=== PATIENT | female | born 1985 | race Caucasian/White ===

== ENCOUNTER 2016-08-15 13:44 | Emergency (ER) | payer BC ==
[2016-08-15 13:52] VITALS: BP 149/86
== END 2016-08-15 14:10 | disposition left against medical advice (07) ==
LOC: ED 13:44
DX: O46.91 Antepartum hemorrhage, unspecified, first trimester (principal); Z3A.01 Less than 8 weeks gestation of pregnancy; Z53.21 Procedure and treatment not carried out due to patient leaving prior to being seen by health care provider

== ENCOUNTER 2016-09-03 18:34 | Emergency (ER) | payer BC, OTHER ==
[2016-09-03 18:45] VITALS: BP 149/84
--- NOTE | 2016-09-03 19:46 | ED ---
- HPI Summary HPI Summary: 30 F presents with vaginal bleeding for a month. Passed a clot two days ago. Has not follow up with obgyn for this issue yet. LMP was 07/09. She admits to cramp like abdominal pain and nausea. She denies any dysuria. She says the bleeding has been mild. She says she felt her cervix and that it felt closed and high. She says she has noticed red blood and dark blood. She says she could have an STD. She denies any fever. She denies any lightheadedness or palpitations. - History of Current Complaint Pain Intensity: 9 - Additional Pertinent History Primary Care Physician: [id number] <Jocelyn Box - Last Filed: 09/03/16 22:56> <David Villareal - Last Filed: 09/17/16 22:18> - History of Current Complaint Chief Complaint: EDVaginalBleeding Stated Complaint: POSS MISCARRIAGE Time Seen by Provider: 09/03/16 19:27 - Allergies/Home Medications Allergies/Adverse Reactions: Allergies Allergy/AdvReac Type Severity Reaction Status Date / Time No Known Allergies Allergy Verified 12/20/15 14:57 PMH/Surg Hx/FS Hx/Imm Hx Endocrine/Hematology History: Reports: Hx Anemia - current Sensory History: Reports: Hx Contacts or Glasses - glasses for distance Denies: Hx Hearing Problem Opthamlomology History: Reports: Hx Contacts or Glasses - glasses for distance Psychiatric History: Reports: Hx Anxiety, Hx Depression, Hx Panic Disorder, Hx Community Mental Health Tx, Hx Substance Abuse Denies: Hx Eating Disorder, Hx of Violent Episodes Against Others Infectious Disease History: No Infectious Disease History: Denies: Traveled Outside the [place] in Last 30 Days - Family History Known Family History: Negative: Cardiac Disease - Social History Alcohol Use: Occasionally Substance Use Type: Reports: Cocaine, Prescribed Smoking Status (MU): Current Every Day Smoker Type: Cigarettes Amount Used/How Often: half pack per day Length of Time of Smoking/Using Tobacco: has smoked on and off for years Have You Smoked in the Last Year: Yes <Jocelyn Box - Last Filed: 09/03/16 22:56> Review of Systems Negative: Fever Negative: Chest Pain Negative: Shortness Of Breath Positive: Abdominal Pain - pelvic pain, Nausea, Other - vaginal bleeding. Negative: Vomiting, Diarrhea Negative: dysuria All Other Systems Reviewed And Are Negative: Yes <Janet Boxbeth - Last Filed: 09/03/16 22:56> Physical Exam - Physical Exam Triage Information Reviewed: Yes Vital Signs Reviewed: Yes Appearance: Positive: Well-Appearing Skin: Positive: Warm, Dry Head/Face: Positive: Normal Head/Face Inspection Eyes: Positive: Normal, Conjunctiva Clear ENT: Positive: Normal ENT inspection, Pharynx normal, TMs normal Respiratory/Lung Sounds: Positive: Clear to Auscultation, Breath Sounds Present Cardiovascular: Positive: Normal, RRR Abdomen Description: Positive: Soft, Other: - tenderness to suprapubic region, no rebound tenderness Bowel Sounds: Positive: Present <Janet Boxbeth - Last Filed: 09/03/16 22:56> Diagnostics - Vital Signs Vital Signs Temp Pulse Resp BP Pulse Ox 09/03/16 18:40 98.7 F 92 16 149/84 100 - Laboratory Result Diagrams: 09/03/16 19:59 09/03/16 19:59 Lab Statement: Any lab studies that have been ordered have been reviewed, and results considered in the medical decision making process. - Ultrasound No standard instances Ultrasound Interpretation: Positive (See Comments) - IMPRESSION: 1. Single live intrauterine gestation with a crown-rump length yielding a gestational age of 9 weeks and 2 days. 2. Small subchorionic hemorrhage is noted with a maximum thickness is 7 mm measuring up to 3.2 cm in length. 3. The right ovary is not discretely visualized. Ultrasound Interpretation Completed By: Radiologist <Jocelyn Box - Last Filed: 09/03/16 22:56> - Vital Signs Vital Signs Temp Pulse Resp BP Pulse Ox 09/03/16 18:40 98.7 F 92 16 149/84 100 - Laboratory Lab Results: Lab Results 09/03/16 09/03/16 09/03/16 Range/Units 19:59 19:59 19:59 WBC 10.7 (3.5-10.8) 10^3/ul RBC 4.80 (4.0-5.4) 10^6/ul Hgb 8.9 L (12.0-16.0) g/dl Hct 29 L (35-47) % MCV 60 L (80-97) fL MCH 19 L (27-31) pg MCHC 31 (31-36) g/dl RDW 18 H (10.5-15) % Plt Count 279 (150-450) 10^3/ul MPV 9 (7.4-10.4) um3 Neut % (Auto) 70.9 (38-83) % Lymph % (Auto) 20.3 L (25-47) % [place] % (Auto) 5.6 (1-9) % Eos % (Auto) 2.0 (0-6) % Baso % (Auto) 1.2 (0-2) % Absolute Neuts (auto) 7.6 (1.5-7.7) 10^3/ul Absolute Lymphs (auto) 2.2 (1.0-4.8) 10^3/ul Absolute Monos (auto) 0.6 (0-0.8) 10^3/ul Absolute Eos (auto) 0.2 (0-0.6) 10^3/ul Absolute Basos (auto) 0.1 (0-0.2) 10^3/ul Absolute Nucleated RBC 0 10^3/ul Nucleated RBC % 0 Sodium 132 L (133-145) mmol/L Potassium 3.7 (3.5-5.0) mmol/L Chloride 105 (101-111) mmol/L Carbon Dioxide 23 (22-32) mmol/L Anion Gap 4 (2-11) mmol/L BUN 10 (6-24) mg/dL Creatinine 0.48 L (0.51-0.95) mg/dL Est GFR ( Amer) 195.3 (>60) Est GFR (Non-Af Amer) 151.9 (>60) BUN/Creatinine Ratio 20.8 H (8-20) Glucose 86 (70-100) mg/dL Calcium 8.3 L (8.6-10.3) mg/dL Total Bilirubin 0.30 (0.2-1.0) mg/dL AST 10 L (13-39) U/L ALT 6 L (7-52) U/L Alkaline Phosphatase 29 L (34-104) U/L Total Protein 6.0 L (6.4-8.9) g/dL Albumin 3.3 (3.2-5.2) g/dL Globulin 2.7 (2-4) g/dL Albumin/Globulin Ratio 1.2 (1-3) Beta HCG, Quant 400504.00 mIU/mL Urine Color Urine Appearance Urine pH (5-9) Ur Specific [place] (1.010-1.030) Urine Protein (Negative) Urine Ketones (Negative) Urine Blood (Negative) Urine Nitrate (Negative) Urine Bilirubin (Negative) Urine Urobilinogen (Negative) Ur Leukocyte Esterase (Negative) Urine WBC (Auto) (Absent) Urine RBC (Auto) (Absent) Ur Squamous Epith Cells (Absent) Amorphous Crystals (Absent) Urine Bacteria (Absent) Urine Glucose (Negative) Blood Type A Positive 09/03/16 Range/Units 20:15 WBC (3.5-10.8) 10^3/ul RBC (4.0-5.4) 10^6/ul Hgb (12.0-16.0) g/dl Hct (35-47) % MCV (80-97) fL MCH (27-31) pg MCHC (31-36) g/dl RDW (10.5-15) % Plt Count (150-450) 10^3/ul MPV (7.4-10.4) um3 Neut % (Auto) (38-83) % Lymph % (Auto) (25-47) % [place] % (Auto) (1-9) % Eos % (Auto) (0-6) % Baso % (Auto) (0-2) % Absolute Neuts (auto) (1.5-7.7) 10^3/ul Absolute Lymphs (auto) (1.0-4.8) 10^3/ul Absolute Monos (auto) (0-0.8) 10^3/ul Absolute Eos (auto) (0-0.6) 10^3/ul Absolute Basos (auto) (0-0.2) 10^3/ul Absolute Nucleated RBC 10^3/ul Nucleated RBC % Sodium (133-145) mmol/L Potassium (3.5-5.0) mmol/L Chloride (101-111) mmol/L Carbon Dioxide (22-32) mmol/L Anion Gap (2-11) mmol/L BUN (6-24) mg/dL Creatinine (0.51-0.95) mg/dL Est GFR ( Amer) (>60) Est GFR (Non-Af Amer) (>60) BUN/Creatinine Ratio (8-20) Glucose (70-100) mg/dL Calcium (8.6-10.3) mg/dL Total Bilirubin (0.2-1.0) mg/dL AST (13-39) U/L ALT (7-52) U/L Alkaline Phosphatase (34-104) U/L Total Protein (6.4-8.9) g/dL Albumin (3.2-5.2) g/dL Globulin (2-4) g/dL Albumin/Globulin Ratio (1-3) Beta HCG, Quant mIU/mL Urine Color Yellow Urine Appearance Cloudy Urine pH 7.0 (5-9) Ur Specific [place] 1.021 (1.010-1.030) Urine Protein Negative (Negative) Urine Ketones Negative (Negative) Urine Blood Negative (Negative) Urine Nitrate Negative (Negative) Urine Bilirubin Negative (Negative) Urine Urobilinogen Negative (Negative) Ur Leukocyte Esterase Trace H (Negative) Urine WBC (Auto) Absent (Absent) Urine RBC (Auto) Absent (Absent) Ur Squamous Epith Cells Present H (Absent) Amorphous Crystals Present H (Absent) Urine Bacteria Absent (Absent) Urine Glucose Negative (Negative) Blood Type Result Diagrams: 09/03/16 19:59 09/03/16 19:59 Lab Statement: Any lab studies that have been ordered have been reviewed, and results considered in the medical decision making process. <David Villareal - Last Filed: 09/17/16 22:18> Course/Dx - Course Course Of Treatment: 30 F presents with vaginal bleeding for a month intermittent. passed a clot two days ago. admits to nausea and cramp like pelvic pain but denies any vomiting. on exam tenderness to suprapelvic region. labs normal WBC. no need rho gram. HCG not in indeterminate range. H/H shows anemic but pateint denies any symptoms of anemia instructed to add iron supplement. u/s shows viable interuterine with subchoronic hemorrhage. She refused a pelvic exam. She states she felt her cervix and it felt closed and high. Told her in order to do STD testing need to do pelvic. Told her about the risks of STDs to the baby and herself and she states she will follow up with the obgyn for STD testing and pelvic exam she is in a hurry to leave the ER currently. Instructed to return if develops fever, vomiting, or severe pain or any new vaginal discharge. patient will follow up with obgyn and understands and agrees with plan. - Differential Diagnosis/HQI/PQRI: Incomplete , Spontaneous , Threatened , Intrauterine , STI/STD, Vaginal Bleeding <Jocelyn Box - Last Filed: 09/03/16 22:56> - Course Assessment/Plan: Patient not presented, seen or examen by in WR <David Villareal - Last Filed: 09/17/16 22:18> - Diagnoses Provider Diagnoses: Intrauterine , Subchorionic bleed Discharge <Jocelyn Box - Last Filed: 09/03/16 22:56> <David Villareal - Last Filed: 09/17/16 22:18> - Discharge Plan Condition: Stable Disposition: HOME Patient Education Materials: Threatened Miscarriage (ED) Referrals: Geena Dent MD [Medical Doctor] - No Primary Care Phys,NOPCP [Primary Care Provider] - Additional Instructions: Follow up with obgyn as soon as possible Return to ED if develop fever, vomiting, severe abdominal pain or any new or worsening symptoms
[2016-09-03 20:07] LABS: Hematocrit 29 % (35-47); Hemoglobin 8.9 g/dl (12.0-16.0); Mean Corpuscular HGB Conc 31 g/dl (31-36); Mean Corpuscular Hemoglobin 19 pg (27-31); Mean Platelet Volume 9 um3 (7.4-10.4); Red Cell Distribution Width 18 % (10.5-15); White Blood Count 10.7 10^3/ul (3.5-10.8)
[2016-09-03 20:10] LABS: Comments Flag Yes
[2016-09-03 20:11] LABS: Mean Corpuscular Volume 60 fL (80-97)
[2016-09-03 20:26] LABS: Albumin 3.3 g/dL (3.2-5.2); BUN/Creatinine Ratio 20.8 (8-20); Calcium 8.3 mg/dL (8.6-10.3); EGFR African American 195.3 (>60); EGFR Non-African American 151.9 (>60); Globulin 2.7 g/dL (2-4); Potassium 3.7 mmol/L (3.5-5.0); Total Bilirubin 0.3 mg/dL (0.2-1.0)
[2016-09-03 20:27] LABS: Urine Bacteria Absent (Absent); Urine Bilirubin Negative (Negative); Urine Glucose Negative (Negative); Urine Nitrite Negative (Negative)
--- NOTE | 2016-09-03 21:36 | RAD ---
HISTORY: Vaginal bleeding. Last menstrual period reported to be July 07, 2017 corresponding to a gestational age of 8 weeks and 2 days. COMPARISONS: None TECHNIQUE: Multiple transverse and longitudinal ultrasound images were obtained of the pelvis using grayscale, color flow, spectral and M-mode sonographic imaging. FINDINGS: UTERUS: The uterus is normal in shape, size, contour, and echotexture. GESTATION: There is a single live intrauterine gestation. The crown-rump length measures 2.5 cm yielding a gestational age of 9 weeks and 2 days. The mean gestational sac diameter measures 4.9 centimeters yielding a gestational age of 10 weeks and 6 days. The 6 mm yolk sac is present. cardiac motion is detected at a rate of 181 beats per minute. There is subchorionic fluid measuring 7 mm in greatest thickness and up to 3.2 cm in length. CUL-DE-SAC: There is no free fluid within the cul-de-sac. RIGHT OVARY: The right ovary is not discretely visualized. LEFT OVARY: The left ovary measures 3 x 1.5 x 4.7 cm. IMPRESSION: 1. Single live intrauterine gestation with a crown-rump length yielding a gestational age of 9 weeks and 2 days. 2. Small subchorionic hemorrhage is noted with a maximum thickness is 7 mm measuring up to 3.2 cm in length. 3. The right ovary is not discretely visualized.
== END 2016-09-03 21:47 | disposition home or self-care (01) ==
LOC: ED 18:34
DX: O20.8 Other hemorrhage in early pregnancy (principal); Z34.90 Encounter for supervision of normal pregnancy, unspecified, unspecified trimester; R10.2 Pelvic and perineal pain; R10.9 Unspecified abdominal pain; R11.0 Nausea
CPT/HCPCS: 36415; 76801; 80053; 81003; 81015; 84702; 85025; 86900; 86901; 87086; 99282

== ENCOUNTER 2017-05-02 18:51 | Emergency (ER) | payer OTHER ==
[2017-05-02 23:44] LABS: Hematocrit 27 % (35-47); Hemoglobin 8.1 g/dl (12.0-16.0); Mean Corpuscular HGB Conc 30 g/dl (31-36); Mean Corpuscular Hemoglobin 17 pg (27-31); Mean Platelet Volume 9 um3 (7.4-10.4); Red Blood Count 4.88 10^6/ul (4.0-5.4); Red Cell Distribution Width 21 % (10.5-15); White Blood Count 6.3 10^3/ul (3.5-10.8)
[2017-05-02 23:46] LABS: Comments Flag Yes
[2017-05-02 23:48] LABS: Mean Corpuscular Volume 55 fL (80-97)
[2017-05-03 00:02] LABS: ALT 9 U/L (7-52); AST 11 U/L (13-39); Alkaline Phosphatase 31 U/L (34-104); Anion Gap 4 mmol/L (2-11); BUN/Creatinine Ratio 16.4 (8-20); Blood Urea Nitrogen 10 mg/dL (6-24); CO2 Carbon Dioxide 26 mmol/L (22-32); Calcium 8.8 mg/dL (8.6-10.3); Chloride 106 mmol/L (101-111); EGFR African American 147.1 (>60); EGFR Non-African American 114.4 (>60); Globulin 2.6 g/dL (2-4); Glucose 91 mg/dL (70-100); Potassium 3.6 mmol/L (3.5-5.0); Sodium 136 mmol/L (133-145); Total Protein 6.6 g/dL (6.4-8.9)
[2017-05-03] MEDS ORDERED: Ferrous Sulfate TAB* 325 MG PO ONE (00:36)
[2017-05-03] MEDS ORDERED: Acetaminophen TAB* 325 MG PO ONE (00:38)
[2017-05-03 01:22] LABS: Urine Bacteria Absent (Absent); Urine Bilirubin Negative (Negative); Urine Glucose Negative (Negative); Urine Nitrite Negative (Negative)
--- NOTE | 2017-05-03 01:47 | ED ---
GI/ HPI - HPI Summary HPI Summary: Patient presents to the ED with CC of vaginal bleeding x 7 days. She states she had a still 5 months ago and this is her 3rd cycle, all which were abnormal and longer than usual. She normally has regular cycles without cramping. 7 days ago she began with moderate bleeding which has become worse over the last few days and worse today. She is soaking through 3 super tampons per day and 1 pad. She notes to some PICA and chewing on ice, restless leg and LIAO. She has had anemia before and this feels similar. She denies any other significant OB history. Denies other pain. She is otherwise healthy and takes no medications. She was seen at [facility] and test negative. Denies history of ovarian cysts or endometriosis. She is not on control and denies history or concern for STI's. - History of Current Complaint Chief Complaint: EDVaginalBleeding Time Seen by Provider: 05/02/17 23:18 Stated Complaint: VAGINA BLEEDING Hx Obtained From: Patient Onset/Duration: Started Days Ago Timing: Constant Severity: Moderate Vaginal Bleeding Description: Bright Red Number of Pads per Day: 1 - 3 super tampons Pain Intensity: 2 Additional Location for Females: Uterus Pain Characteristics: Cramping Associated Signs and Symptoms: Positive: Pallor Additional Signs & Symptoms: Positive: Vaginal Bleeding Aggravating Factor(s): Nothing Alleviating Factor(s): Nothing - Risk Factors GI Bleed Risk Factor(s): Negative Spontaneous AB Risk Factor(s): Negative Placental Abruption Risk Factor(s): Negative Ectopic Risk Factor(s): Maternal Age ^ 30 Ovarian Torsion Risk Factor(s): Reproductive Age - Additional Pertinent History Primary Care Physician: [id number] - Allergy/Home Medications Allergies/Adverse Reactions: Allergies Allergy/AdvReac Type Severity Reaction Status Date / Time No Known Allergies Allergy Verified 12/20/15 14:57 PMH/Surg Hx/FS Hx/Imm Hx Previously Healthy: Yes Endocrine/Hematology History: Reports: Hx Anemia - current Sensory History: Reports: Hx Contacts or Glasses - glasses for distance Denies: Hx Hearing Problem Opthamlomology History: Reports: Hx Contacts or Glasses - glasses for distance Psychiatric History: Reports: Hx Anxiety, Hx Depression, Hx Panic Disorder, Hx Community Mental Health Tx, Hx Substance Abuse Denies: Hx Eating Disorder, Hx of Violent Episodes Against Others - Immunization History Hx Pertussis Vaccination: No Immunizations Up to Date: Unable to Obtain/Confirm Infectious Disease History: No Infectious Disease History: Denies: Traveled Outside the [place] in Last 30 Days - Family History Known Family History: Negative: Cardiac Disease - Social History Occupation: Employed Full-time Lives: With Family Alcohol Use: None Hx Substance Use: No Substance Use Type: Reports: Prescribed Hx Tobacco Use: Yes Smoking Status (MU): Current Every Day Smoker Type: Cigarettes Amount Used/How Often: half pack per day Length of Time of Smoking/Using Tobacco: has smoked on and off for years Have You Smoked in the Last Year: Yes Review of Systems Positive: Fatigue. Negative: Fever, Chills Eyes: Negative Cardiovascular: Negative Respiratory: Negative Gastrointestinal: Negative Genitourinary: Negative - vaginal bleeding Positive: other Musculoskeletal: Negative Positive: Headache Psychological: Normal All Other Systems Reviewed And Are Negative: Yes Physical Exam Triage Information Reviewed: Yes Vital Signs On Initial Exam: Initial Vitals Temp Pulse Resp BP Pulse Ox 99.1 F 93 20 131/79 100 05/02/17 19:00 05/02/17 19:00 05/02/17 19:00 05/02/17 19:00 05/02/17 19:00 Vital Signs Reviewed: Yes Appearance: Positive: Well-Appearing, Well-Nourished Skin: Positive: Warm, Skin Color Reflects Adequate Perfusion Head/Face: Positive: Normal Head/Face Inspection Eyes: Positive: EOMI, TAMAR, Conjunctiva Clear Neck: Positive: Supple, No Lymphadenopathy Respiratory/Lung Sounds: Positive: Clear to Auscultation, Breath Sounds Present Cardiovascular: Positive: Normal, RRR Musculoskeletal: Positive: Normal, Strength/ROM Intact Neurological: Positive: Sensory/Motor Intact, Alert, Oriented to Person Place, Time, Speech Normal Psychiatric: Positive: Normal AVPU Assessment: Alert Diagnostics - Vital Signs Vital Signs Temp Pulse Resp BP Pulse Ox 05/02/17 21:30 91 18 130/79 98 05/02/17 19:00 99.1 F 93 20 131/79 100 - Laboratory Lab Results: Lab Results 05/02/17 05/02/17 05/03/17 Range/Units 23:34 23:34 01:05 WBC 6.3 (3.5-10.8) 10^3/ul RBC 4.88 (4.0-5.4) 10^6/ul Hgb 8.1 L (12.0-16.0) g/dl Hct 27 L (35-47) % MCV 55 L (80-97) fL MCH 17 L (27-31) pg MCHC 30 L (31-36) g/dl RDW 21 H (10.5-15) % Plt Count 326 (150-450) 10^3/ul MPV 9 (7.4-10.4) um3 Neut % (Auto) 52.1 (38-83) % Lymph % (Auto) 32.7 (25-47) % [place] % (Auto) 7.2 (1-9) % Eos % (Auto) 5.0 (0-6) % Baso % (Auto) 3.0 H (0-2) % Absolute Neuts (auto) 3.3 (1.5-7.7) 10^3/ul Absolute Lymphs (auto) 2.1 (1.0-4.8) 10^3/ul Absolute Monos (auto) 0.5 (0-0.8) 10^3/ul Absolute Eos (auto) 0.3 (0-0.6) 10^3/ul Absolute Basos (auto) 0.2 (0-0.2) 10^3/ul Absolute Nucleated RBC 0 10^3/ul Nucleated RBC % 0 Sodium 136 (133-145) mmol/L Potassium 3.6 (3.5-5.0) mmol/L Chloride 106 (101-111) mmol/L Carbon Dioxide 26 (22-32) mmol/L Anion Gap 4 (2-11) mmol/L BUN 10 (6-24) mg/dL Creatinine 0.61 (0.51-0.95) mg/dL Est GFR ( Amer) 147.1 (>60) Est GFR (Non-Af Amer) 114.4 (>60) BUN/Creatinine Ratio 16.4 (8-20) Glucose 91 (70-100) mg/dL Calcium 8.8 (8.6-10.3) mg/dL Total Bilirubin 0.40 (0.2-1.0) mg/dL AST 11 L (13-39) U/L ALT 9 (7-52) U/L Alkaline Phosphatase 31 L (34-104) U/L Total Protein 6.6 (6.4-8.9) g/dL Albumin 4.0 (3.2-5.2) g/dL Globulin 2.6 (2-4) g/dL Albumin/Globulin Ratio 1.5 (1-3) Beta HCG, Quant < 0.60 mIU/mL Urine Color Straw Urine Appearance Clear Urine pH 6.0 (5-9) Ur Specific [place] 1.005 L (1.010-1.030) Urine Protein Negative (Negative) Urine Ketones Negative (Negative) Urine Blood Negative (Negative) Urine Nitrate Negative (Negative) Urine Bilirubin Negative (Negative) Urine Urobilinogen Negative (Negative) Ur Leukocyte Esterase Trace H (Negative) Urine WBC (Auto) Trace(0-5/hpf) (Absent) Urine RBC (Auto) Trace(0-2/hpf) (Absent) Ur Squamous Epith Cells Present H (Absent) Urine Bacteria Absent (Absent) Urine Glucose Negative (Negative) Result Diagrams: 05/02/17 23:34 05/02/17 23:34 Lab Statement: Any lab studies that have been ordered have been reviewed, and results considered in the medical decision making process. GIGU Course/Dx - Course Course Of Treatment: Patient is noted to have low hbg and hct. She is given ferrous sulfate 325 in ED and given Tylenol for LIAO. Labs otherwise OK. She is given referral to OBGYN to follow up on vaginal bleeding. Rx sent for ferous sulfate 50mg TID x 10 days. risks and benefits given and patient agrees to return if any symptoms worsen including LIAO, weakness or worsening vaginal bleeding or lower quadrants pain. Referred to UTD on proper iron based dosing depending on hgb levels. - Diagnoses Differential Diagnoses - Female: Other - vaginal bleeding, mentruation, metrorrhagia Provider Diagnoses: Menorrhagia Discharge - Discharge Plan Condition: Stable Disposition: HOME Prescriptions: Ferrous Sulfate [Iron (Ferrous Sulfate)] 50 mg PO TID #30 tab Patient Education Materials: Iron Rich Diet (ED), Iron Deficiency Anemia (ED) Referrals: Graham LAWRENCE,Jeremy Asif [Primary Care Provider] - Geena Dent MD [Medical Doctor] - Additional Instructions: Iron deficiency anemia Take Ferous Sulfate 50mg three times daily You may become constipated with this medication, so drink plenty of water and take senna capsules or senna tea if you begin to feel constipated For severe constipation, take miralax Please follow up with Dr. Dent or someone from her office If you develop any worsening symptoms, please return to the ED immediately.
[2017-05-03 03:25] VITALS: BP 133/85
== END 2017-05-03 01:47 | disposition home or self-care (01) ==
LOC: ED 18:51
DX: N92.0 Excessive and frequent menstruation with regular cycle (principal); R53.83 Other fatigue; F17.210 Nicotine dependence, cigarettes, uncomplicated
CPT/HCPCS: 36415; 80053; 81003; 81015; 84702; 85025; 86703; 87086; 99283; A9270-GY

== ENCOUNTER 2017-08-23 06:18 | Day surgery (SDC) | payer OTHER ==
[~2017-08-23 06:18] MED LIST: Buffered Lidocaine 0.9% SYRIN* 5 ML/SYR SYRINGE INTRADERM ONE; Dexamethasone IV* 4 MG/ML 1 ML (4 MG) IV SLOW PU ONE; Famotidine IV* 10 MG/ML 2 ML (20 mg) IV ONE
[2017-08-23] MEDS ORDERED: Famotidine IV* 10 MG/ML 2 ML (20 mg) ONE (06:26)
[2017-08-23] MEDS ORDERED: ceFAZolin 1 GM in Dextrose (*) 2 GM/100 ML BAG IVPB ONE (06:27)
[2017-08-23] MEDS ORDERED: Buffered Lidocaine 0.9% SYRIN* 5 ML/SYR SYRINGE ONE (06:27)
[2017-08-23] MEDS ORDERED: Dexamethasone IV* 4 MG/ML 1 ML (4 MG) ONE (06:27)
[2017-08-23] MEDS ORDERED: Iodine Strong (LUGOL'S)* 14 ML BTL ONE (07:13)
[2017-08-23] MEDS ORDERED: Ferric Subsulfate* 8 ML BTL ONE (07:13)
[2017-08-23] MEDS ORDERED: VASOPRESSIN 20 UNITS/ML 1 ML VIAL ONE (07:13)
[2017-08-23] MEDS ORDERED: Acetic Acid 0.25%* 250 ML BTL ONE (07:21)
[2017-08-23] MEDS ORDERED: Midazolam* 1 MG/ML 2 ML VIAL (2 MG) ONE (07:36)
[2017-08-23] MEDS ORDERED: fentaNYL* 50 MCG/ML 2 ML VIAL (100 MCG VIAL) ONE (07:36)
[2017-08-23] MEDS ORDERED: fentaNYL* 50 MCG/ML 2 ML VIAL (100 MCG VIAL) IV PRN (07:46)
[2017-08-23] MEDS ORDERED: Naloxone* 0.4 MG/ML 1 ML VIAL IV PRN (07:46)
[2017-08-23] MEDS ORDERED: Ibuprofen TAB* 600 MG PO PRN (08:29)
[2017-08-23] MEDS ORDERED: oxyCODONE/Acetamin 5/325 MG* TAB PO PRN (08:55)
[2017-08-23] MEDS ORDERED: oxyCODONE/Acetamin 5/325 MG* TAB ONE (09:29)
[2017-08-23 10:01] VITALS: BP 110/54
--- NOTE | 2017-08-23 20:58 | OP ---
DICTATION ENDS ABRUPTLY DATE OF OPERATION: 08/23/17 - [facility] DATE OF : 85 SURGEON: Chelle Waters MD ANESTHESIOLOGIST: Dr. Landis. ANESTHESIA: General endotracheal anesthesia. PRE-OP DIAGNOSIS: Moderate cervical dysplasia in more than one quadrant on colposcopy. POST-OP DIAGNOSIS: Moderate cervical dysplasia in more than one quadrant on colposcopy, pathology pending. OPERATIVE PROCEDURE: Rubi cone biopsy, colposcopy. ESTIMATED BLOOD LOSS: Minimal, less than 20 cc. FINDINGS: Midline large multiparous cervix, acetowhite changes on the lower end of the cervix at approximately 7 o'clock. No abnormal vessels. No lesions seen. COMPLICATIONS: None. COUNTS: Sponge count correct x2. CONDITION: The patient tolerated the procedure well and was brought to recovery room awake and in stable condition. SPECIMENS: Rubi cone biopsy size small and endocervical curettings. The specimen was very superficial and did not go very deep into the cervix. DICTATION ENDS ABRUPTLY [id number]/[facility] #: [id number] [facility]
== END 2017-08-23 10:00 | disposition home or self-care (01) ==
LOC: OR 06:18
PROVIDERS: ATTEND Obstetrics & Gynecology
DX: R87.612 Low grade squamous intraepithelial lesion on cytologic smear of cervix (LGSIL) (principal); N83.292 Other ovarian cyst, left side; F17.210 Nicotine dependence, cigarettes, uncomplicated; D50.9 Iron deficiency anemia, unspecified; F41.8 Other specified anxiety disorders
CPT/HCPCS: 81025; 88305; 88307; A9270-GY; J0690; J1100; J2250; J3010